=== PATIENT | female | born 1990 | race Caucasian/White ===

== ENCOUNTER 2018-05-30 03:04 | Inpatient (IN) | payer OTHER ==
[2018-05-30] MEDS: morphine 4 MG/ML VIAL IV (03:57)
[2018-05-30] MEDS: ONDANSETRON 4 MG INJ IV ×2 (03:57→13:29)
[2018-05-30] MEDS: SOD CHLORIDE 0.9% 500 ML IV (03:59)
[2018-05-30 04:07] LABS: ADD MAN DIFF? NO
[2018-05-30 04:09] LABS: BASOPHIL # 0.1 10^3/ul (0.0-0.1); BASOPHILS % 0.5 % (0.0-2.0); EOSINOPHILS # 0.1 10^3/ul (0.0-0.5); HEMATOCRIT 43.5 % (37.0-47.0); HEMOGLOBIN 14.8 g/dl (12.0-16.0); LYMPHOCYTES # 3.9 10^3/ul (0.8-2.9); LYMPHOCYTES % 29.9 % (15.0-51.0); MEAN CORPUSCULAR HEMOGLOBIN 28.2 pg (29.0-33.0); MEAN CORPUSCULAR VOLUME 82.9 fl (82.0-101.0); MEAN PLATELET VOLUME 10.5 fl (7.4-10.4); NEUTROPHIL # 7.8 10^3/ul (1.6-7.5); NEUTROPHILS % 60.2 % (39.0-77.0); PLATELET COUNT 367 10^3/UL (140-415); RED BLOOD COUNT 5.25 10^6/ul (4.20-5.40); RED CELL DISTRIBUTION WIDTH 12.6 % (11.5-14.5)
[2018-05-30 04:09] LABS: WHITE BLOOD COUNT 12.9 10^3/ul (4.8-10.8)
[2018-05-30] MEDS: LORAZEPAM 2 MG INJ IV (04:18)
[2018-05-30 04:21] LABS: ADD UMIC YES; UR ASCORBIC ACID NEGATIVE (NEGATIVE); UR BACTERIA FEW /HPF (NONE SEEN); UR BILIRUBIN (Dip) NEGATIVE (NEGATIVE); UR BLOOD (Dip) NEGATIVE (NEGATIVE); UR CLARITY SLIGHTLY CLOUDY (CLEAR); UR COLOR YELLOW (YELLOW); UR GLUCOSE (Dip) NEGATIVE (NEGATIVE); UR KETONES (Dip) NEGATIVE (NEGATIVE); UR LEUKOCYTE ESTERASE (Dip) 3+ Leu/ul (NEGATIVE); UR NITRITE (Dip) NEGATIVE (NEGATIVE); UR RBC 3 /HPF (0-5); UR SPECIFIC GRAVITY (Dip) 1.017 (1.003-1.030); UR SQUAMOUS EPITHELIAL CELL FEW /HPF (FEW); UR TOTAL PROTEIN (Dip) NEGATIVE (NEGATIVE); UR UROBILINOGEN (Dip) NEGATIVE (NEGATIVE); UR WBC 4 /HPF (0-5)
[2018-05-30 04:29] LABS: ALANINE AMINOTRANSFERASE 45 IU/L (13-69); ALBUMIN 4.8 g/dl (3.3-4.9); ALBUMIN/GLOBULIN RATIO 1.29; ALKALINE PHOSPHATASE 86 IU/L (42-121); ANION GAP 8 (5-13); ASPARTATE AMINO TRANSFERASE 38 IU/L (15-46); BILIRUBIN,INDIRECT 0.1 mg/dl (0-1.1); BILIRUBIN,TOTAL 0.1 mg/dl (0.2-1.3); BLOOD UREA NITROGEN 16 mg/dl (7-20); CALCIUM 10.1 mg/dl (8.4-10.2); CARBON DIOXIDE 25 mmol/L (21-31); CHLORIDE 104 mmol/L (97-110); CREATININE 0.89 mg/dl (0.44-1.00); Estimated GFR > 60 mL/min (>60); GLUCOSE 107 mg/dl (70-220); LIPASE 90 U/L (23-300); SODIUM 137 mmol/L (135-144); TOTAL PROTEIN 8.5 g/dl (6.1-8.1)
[2018-05-30] MEDS: IOHEXOL 300MG/ML 150 ML BTL (04:51)
[2018-05-30] MEDS: SOD CHLORIDE 0.9% 100 ML (04:51)
[2018-05-30] MEDS: KETOROLAC 30 MG INJ IV (05:18)
[2018-05-30] MEDS ORDERED: ACETAMINOPHEN 325 MG TAB PO (06:30)
[2018-05-30] MEDS ORDERED: ONDANSETRON 4 MG INJ IV ×3 (06:30→16:00)
[2018-05-30] MEDS: metroNIDAZOLE 500 MG/NS (PMX) 100 ML IVPB ×3 (06:37→23:13)
[2018-05-30] MEDS ORDERED: GLYCOPYRROLATE 0.4 MG INJ (07:00)
[2018-05-30] MEDS ORDERED: NEOSTIGMINE 3 MG/3 ML SYRINGE (07:00)
[2018-05-30] MEDS ORDERED: DEXAMETHASONE 4 MG/ML 1 ML INJ (07:00)
[2018-05-30] MEDS ORDERED: CLINDAMYCIN 900 MG/50 ML D5W IVPB IVPB (07:00)
[2018-05-30] MEDS: LEVOFLOXACIN 500MG/D5W (PMX) 100 ML IVPB ×2 (07:25→16:03)
[2018-05-30] MEDS ORDERED: PROPOFOL 40 ML (12:29)
[2018-05-30] MEDS ORDERED: FENTAnyl 50 MCG/ML VIAL ×2 (12:29→12:56)
[2018-05-30] MEDS ORDERED: LIDOCAINE 2% (SDV) 5 ML INJ (12:29)
[2018-05-30] MEDS ORDERED: MIDAZOLAM 1 MG/ML 2 ML INJ (12:29)
[2018-05-30] MEDS ORDERED: ONDANSETRON 4 MG INJ (12:29)
[2018-05-30] MEDS ORDERED: ROCURONIUM 50 MG INJ (12:29)
[2018-05-30] MEDS ORDERED: FAMOTIDINE 20 MG INJ (12:30)
[2018-05-30] MEDS: BUPIVACAINE 0.5%/EPI (SDV) 30 ML INJ (12:59)
[2018-05-30] MEDS ORDERED: OXYCODONE/ACETAMINOPHEN (5/325) TAB PO ×2 (13:00)
[2018-05-30] MEDS ORDERED: morphine (1 MG/ML) 10ML SYRINGE IV ×2 (13:00)
[2018-05-30] MEDS ORDERED: DIPHENHYDRAMINE 50 MG INJ IV (13:00)
[2018-05-30] MEDS ORDERED: LABETALOL HCL 20MG INJ IV (13:00)
[2018-05-30] MEDS ORDERED: HYDROmorphONE 1 MG/5 ML IV SYRINGE IV (13:00)
[2018-05-30] MEDS ORDERED: ALBUTEROL 0.083% (NEB) 2.5 MG/3 ML AMP HHN (13:00)
[2018-05-30] MEDS ORDERED: FENTAnyl 50 MCG/ML VIAL IV (13:00)
[2018-05-30] MEDS: FENTAnyl 50 MCG/ML VIAL IV ×2 (13:29→13:34)
[2018-05-30] MEDS: MEPERIDINE 25 MG INJ IV (13:29)
[2018-05-30] MEDS: HYDROmorphONE 1 MG/5 ML IV SYRINGE IV (13:54)
[2018-05-30] MEDS: SOD CHLORIDE 0.9% 1,000 ML IV (15:58)
[2018-05-30] MEDS: morphine SULFATE/PF (2 MG/2 ML) SYG IV ×2 (18:48→23:13)
[2018-05-30] MEDS: HYDROCODONE/APAP (5/325) TAB PO (21:46)
[2018-05-31] MEDS: metroNIDAZOLE 500 MG/NS (PMX) 100 ML IVPB ×3 (05:27→21:25)
[2018-05-31] MEDS: morphine SULFATE/PF (2 MG/2 ML) SYG IV ×4 (05:37→21:34)
[2018-05-31] MEDS: SOD CHLORIDE 0.9% 1,000 ML IV ×2 (05:45→12:55)
[2018-05-31 06:41] LABS: ADD MAN DIFF? NO
[2018-05-31 06:47] LABS: BASOPHILS % 0.1 % (0.0-2.0); HEMOGLOBIN 13.3 g/dl (12.0-16.0); LYMPHOCYTES # 1.4 10^3/ul (0.8-2.9); LYMPHOCYTES % 9.1 % (15.0-51.0); MEAN CORPUSCULAR HEMOGLOBIN 28.4 pg (29.0-33.0); MEAN CORPUSCULAR HGB CONC 34.1 g/dl (32.0-37.0); MEAN CORPUSCULAR VOLUME 83.2 fl (82.0-101.0); MEAN PLATELET VOLUME 10.9 fl (7.4-10.4); MONOCYTE # 0.7 10^3/ul (0.3-0.9); MONOCYTES % 4.6 % (0.0-11.0); NEUTROPHILS % 85.9 % (39.0-77.0); PLATELET COUNT 333 10^3/UL (140-415); RED BLOOD COUNT 4.69 10^6/ul (4.20-5.40); RED CELL DISTRIBUTION WIDTH 12.7 % (11.5-14.5)
[2018-05-31 06:47] LABS: WHITE BLOOD COUNT 15.1 10^3/ul (4.8-10.8)
[2018-05-31 07:10] LABS: ANION GAP 12 (5-13); BLOOD UREA NITROGEN 11 mg/dl (7-20); CALCIUM 9.2 mg/dl (8.4-10.2); CARBON DIOXIDE 27 mmol/L (21-31); CHLORIDE 102 mmol/L (97-110); CREATININE 0.68 mg/dl (0.44-1.00); Estimated GFR > 60 mL/min (>60); GLUCOSE 127 mg/dl (70-220); POTASSIUM 4.5 mmol/L (3.5-5.1); SODIUM 141 mmol/L (135-144)
[2018-05-31 07:17] LABS: PHOSPHORUS 4.4 mg/dl (2.5-4.9)
[2018-05-31 07:17] LABS: MAGNESIUM 1.9 mg/dl (1.7-2.5)
[2018-05-31] MEDS: LEVOFLOXACIN 500MG/D5W (PMX) 100 ML IVPB (15:57)
[2018-05-31] MEDS: HYDROCODONE/APAP (5/325) TAB PO (15:57)
[2018-06-01] MEDS: HYDROCODONE/APAP (5/325) TAB PO ×3 (00:14→23:27)
[2018-06-01] MEDS: morphine SULFATE/PF (2 MG/2 ML) SYG IV ×2 (04:59→17:44)
[2018-06-01] MEDS: metroNIDAZOLE 500 MG/NS (PMX) 100 ML IVPB ×3 (05:03→23:23)
[2018-06-01 07:40] LABS: ADD MAN DIFF? NO
[2018-06-01 07:43] LABS: BASOPHILS % 0.3 % (0.0-2.0); EOSINOPHILS % 0.3 % (0.0-7.0); HEMATOCRIT 35.6 % (37.0-47.0); LYMPHOCYTES # 3.1 10^3/ul (0.8-2.9); LYMPHOCYTES % 26.5 % (15.0-51.0); MEAN CORPUSCULAR HEMOGLOBIN 28.2 pg (29.0-33.0); MEAN CORPUSCULAR HGB CONC 33.7 g/dl (32.0-37.0); MEAN CORPUSCULAR VOLUME 83.8 fl (82.0-101.0); MEAN PLATELET VOLUME 10.7 fl (7.4-10.4); MONOCYTE # 1.1 10^3/ul (0.3-0.9); NEUTROPHIL # 7.5 10^3/ul (1.6-7.5); NEUTROPHILS % 63.5 % (39.0-77.0); PLATELET COUNT 303 10^3/UL (140-415); RED BLOOD COUNT 4.25 10^6/ul (4.20-5.40); RED CELL DISTRIBUTION WIDTH 13.3 % (11.5-14.5)
[2018-06-01 07:43] LABS: WHITE BLOOD COUNT 11.8 10^3/ul (4.8-10.8)
[2018-06-01 08:16] LABS: ALANINE AMINOTRANSFERASE 29 IU/L (13-69); ALBUMIN 3.6 g/dl (3.3-4.9); ALBUMIN/GLOBULIN RATIO 1.05; ALKALINE PHOSPHATASE 53 IU/L (42-121); ANION GAP 10 (5-13); ASPARTATE AMINO TRANSFERASE 21 IU/L (15-46); BILIRUBIN,INDIRECT 0.2 mg/dl (0-1.1); BILIRUBIN,TOTAL 0.2 mg/dl (0.2-1.3); BLOOD UREA NITROGEN 10 mg/dl (7-20); CALCIUM 8.5 mg/dl (8.4-10.2); CARBON DIOXIDE 26 mmol/L (21-31); CHLORIDE 106 mmol/L (97-110); CREATININE 0.76 mg/dl (0.44-1.00); Estimated GFR > 60 mL/min (>60); GLUCOSE 93 mg/dl (70-220); POTASSIUM 3.9 mmol/L (3.5-5.1); SODIUM 142 mmol/L (135-144)
[2018-06-01] MEDS ORDERED: LACTULOSE 30ML CUP PO (11:30)
[2018-06-01] MEDS: SOD CHLORIDE 0.9% 1,000 ML IV (11:32)
[2018-06-01] MEDS: LEVOFLOXACIN 500MG/D5W (PMX) 100 ML IVPB (17:42)
[2018-06-02] MEDS: SOD CHLORIDE 0.9% 1,000 ML IV (04:55)
[2018-06-02] MEDS: metroNIDAZOLE 500 MG/NS (PMX) 100 ML IVPB (06:23)
[2018-06-02] MEDS: HYDROCODONE/APAP (5/325) TAB PO (06:24)
[2018-06-02 06:34] LABS: ADD MAN DIFF? NO
[2018-06-02 06:35] LABS: BASOPHILS % 0.4 % (0.0-2.0); EOSINOPHILS % 0.4 % (0.0-7.0); HEMATOCRIT 37.6 % (37.0-47.0); HEMOGLOBIN 12.7 g/dl (12.0-16.0); LYMPHOCYTES # 2.5 10^3/ul (0.8-2.9); MEAN CORPUSCULAR HEMOGLOBIN 28.5 pg (29.0-33.0); MEAN CORPUSCULAR HGB CONC 33.8 g/dl (32.0-37.0); MEAN CORPUSCULAR VOLUME 84.3 fl (82.0-101.0); MEAN PLATELET VOLUME 10.3 fl (7.4-10.4); MONOCYTE # 0.9 10^3/ul (0.3-0.9); MONOCYTES % 7.9 % (0.0-11.0); NEUTROPHIL # 7.5 10^3/ul (1.6-7.5); NEUTROPHILS % 68.1 % (39.0-77.0); PLATELET COUNT 336 10^3/UL (140-415); RED BLOOD COUNT 4.46 10^6/ul (4.20-5.40)
[2018-06-02 06:35] LABS: WHITE BLOOD COUNT 10.9 10^3/ul (4.8-10.8)
[2018-06-02 07:01] LABS: ANION GAP 11 (5-13); BLOOD UREA NITROGEN 9 mg/dl (7-20); CALCIUM 8.8 mg/dl (8.4-10.2); CARBON DIOXIDE 26 mmol/L (21-31); CHLORIDE 104 mmol/L (97-110); Estimated GFR > 60 mL/min (>60); GLUCOSE 95 mg/dl (70-220); POTASSIUM 3.7 mmol/L (3.5-5.1); SODIUM 141 mmol/L (135-144)
[2018-06-02] MEDS: BISACODYL 10 MG SUPP PR (11:10)
== END 2018-06-02 14:20 | disposition home or self-care (01) | DRG 421 ==
LOC: FTE 03:04 → 2NE 06:31
PROC: 0WJG4ZZ Inspection of Peritoneal Cavity, Percutaneous Endoscopic Approach (ICD-10-PCS; principal; 2018-05-30 12:30)
DX: K80.20 Calculus of gallbladder without cholecystitis without obstruction (principal); K56.7 Ileus, unspecified; K66.0 Peritoneal adhesions (postprocedural) (postinfection); N32.89 Other specified disorders of bladder; E66.9 Obesity, unspecified; K59.00 Constipation, unspecified; Z68.36 Body mass index [BMI] 36.0-36.9, adult; Z98.2 Presence of cerebrospinal fluid drainage device; Z88.0 Allergy status to penicillin
CPT/HCPCS: 36415; 74177; 76705; 78226; 80048; 80053; 81001; 81025; 83690; 83735; 84100; 84703; 85025; 96361; 96374; 96375; 99285-25

== ENCOUNTER 2018-10-01 23:33 | Inpatient (IN) | payer OTHER ==
[2018-10-02] MEDS: morphine 4 MG/ML VIAL IV ×2 (01:15→16:42)
[2018-10-02] MEDS: ONDANSETRON 4 MG INJ IV ×2 (01:15→08:10)
[2018-10-02] MEDS: SOD CHLORIDE 0.9% 1,000 ML IV ×3 (01:18→13:17)
[2018-10-02 01:23] LABS: ADD MAN DIFF? NO
[2018-10-02 01:24] LABS: WHITE BLOOD COUNT 13.5 10^3/ul (4.8-10.8)
[2018-10-02 01:24] LABS: BASOPHIL # 0.1 10^3/ul (0.0-0.1); BASOPHILS % 0.7 % (0.0-2.0); EOSINOPHILS # 0.1 10^3/ul (0.0-0.5); EOSINOPHILS % 0.5 % (0.0-7.0); HEMATOCRIT 43.5 % (37.0-47.0); HEMOGLOBIN 14.7 g/dl (12.0-16.0); LYMPHOCYTES # 3.5 10^3/ul (0.8-2.9); LYMPHOCYTES % 25.7 % (15.0-51.0); MEAN CORPUSCULAR HEMOGLOBIN 28.2 pg (29.0-33.0); MEAN CORPUSCULAR HGB CONC 33.8 g/dl (32.0-37.0); MEAN CORPUSCULAR VOLUME 83.3 fl (82.0-101.0); MEAN PLATELET VOLUME 11.1 fl (7.4-10.4); MONOCYTE # 0.9 10^3/ul (0.3-0.9); MONOCYTES % 6.9 % (0.0-11.0); NEUTROPHIL # 8.9 10^3/ul (1.6-7.5); NEUTROPHILS % 66.1 % (39.0-77.0); PLATELET COUNT 324 10^3/UL (140-415); RED BLOOD COUNT 5.22 10^6/ul (4.20-5.40); RED CELL DISTRIBUTION WIDTH 13.2 % (11.5-14.5)
[2018-10-02] MEDS: HYDROmorphONE 0.5 MG/0.5 ML SYG IV ×3 (01:42→05:52)
[2018-10-02 01:51] LABS: ALANINE AMINOTRANSFERASE 22 IU/L (13-69); ALBUMIN/GLOBULIN RATIO 1.35; ALKALINE PHOSPHATASE 90 IU/L (42-121); ANION GAP 16 (5-13); ASPARTATE AMINO TRANSFERASE 25 IU/L (15-46); BILIRUBIN,INDIRECT 0.3 mg/dl (0-1.1); BILIRUBIN,TOTAL 0.3 mg/dl (0.2-1.3); BLOOD UREA NITROGEN 9 mg/dl (7-20); CALCIUM 10.3 mg/dl (8.4-10.2); CARBON DIOXIDE 22 mmol/L (21-31); CHLORIDE 105 mmol/L (97-110); CREATININE 0.84 mg/dl (0.44-1.00); Estimated GFR > 60 mL/min (>60); GLUCOSE 126 mg/dl (70-220); LIPASE 103 U/L (23-300); POTASSIUM 3.2 mmol/L (3.5-5.1); SODIUM 143 mmol/L (135-144); TOTAL PROTEIN 8.7 g/dl (6.1-8.1)
[2018-10-02] MEDS: metroNIDAZOLE 500 MG/NS (PMX) 100 ML IVPB ×3 (03:09→23:50)
[2018-10-02] MEDS: LEVOFLOXACIN 500MG/D5W (PMX) 100 ML IVPB (04:02)
[2018-10-02] MEDS: IOHEXOL 300MG/ML 150 ML BTL (04:27)
[2018-10-02] MEDS: SOD CHLORIDE 0.9% 100 ML (04:28)
[2018-10-02 04:50] LABS: ADD UMIC YES; UR ASCORBIC ACID NEGATIVE (NEGATIVE); UR BILIRUBIN (Dip) NEGATIVE (NEGATIVE); UR BLOOD (Dip) 1+ mg/dL (NEGATIVE); UR CLARITY SLIGHTLY CLOUDY (CLEAR); UR COLOR YELLOW (YELLOW); UR GLUCOSE (Dip) NEGATIVE (NEGATIVE); UR KETONES (Dip) 1+ mg/dL (NEGATIVE); UR LEUKOCYTE ESTERASE (Dip) 1+ Leu/ul (NEGATIVE); UR MUCUS FEW /HPF (NONE SEEN); UR NITRITE (Dip) NEGATIVE (NEGATIVE); UR RBC 3 /HPF (0-5); UR SPECIFIC GRAVITY (Dip) 1.017 (1.003-1.030); UR SQUAMOUS EPITHELIAL CELL MODERATE /HPF (FEW); UR TOTAL PROTEIN (Dip) NEGATIVE (NEGATIVE); UR UROBILINOGEN (Dip) NEGATIVE (NEGATIVE); UR WBC 3 /HPF (0-5)
[2018-10-02] MEDS ORDERED: ONDANSETRON 4 MG INJ IV ×3 (07:30→22:00)
[2018-10-02] MEDS: HYDROmorphONE 1 MG/ML SYG IV (08:10)
[2018-10-02] MEDS: morphine 2 MG INJ IV (12:18)
[2018-10-02] MEDS ORDERED: METOCLOPRAMIDE 10 MG INJ IV ×2 (13:30→22:00)
[2018-10-02] MEDS: CIPROFLOXACIN 400MG/D5W 200 ML IVPB (19:51)
[2018-10-02] MEDS ORDERED: SEVOFLURANE 15 MIN (20:00)
[2018-10-02] MEDS ORDERED: MIDAZOLAM 1 MG/ML 2 ML INJ (20:01)
[2018-10-02] MEDS ORDERED: ROPIVACAINE 0.5 % 30 ML VIAL (21:27)
[2018-10-02] MEDS ORDERED: DIPHENHYDRAMINE 50 MG INJ IV ×2 (21:30→22:00)
[2018-10-02] MEDS ORDERED: HYDROCODONE/APAP (5/325) TAB PO (21:30)
[2018-10-02] MEDS ORDERED: DIPHENHYDRAMINE 25 MG CAP PO (21:30)
[2018-10-02] MEDS ORDERED: LIDOCAINE 2% (SDV) 5 ML INJ (21:41)
[2018-10-02] MEDS ORDERED: PROPOFOL 20 ML (21:41)
[2018-10-02] MEDS ORDERED: GLYCOPYRROLATE 0.4 MG INJ (21:41)
[2018-10-02] MEDS ORDERED: METOCLOPRAMIDE 10 MG INJ (21:41)
[2018-10-02] MEDS ORDERED: ONDANSETRON 4 MG INJ (21:41)
[2018-10-02] MEDS ORDERED: NEOSTIGMINE 3 MG/3 ML SYRINGE (21:41)
[2018-10-02] MEDS: BUPIVACAINE 0.5%/EPI (SDV) 30 ML INJ (21:55)
[2018-10-02] MEDS: LIDOCAINE 1% (MPF) 30 ML INJ (21:55)
[2018-10-02] MEDS ORDERED: MEPERIDINE 25 MG INJ IV (22:00)
[2018-10-02] MEDS ORDERED: FENTAnyl 50 MCG/ML VIAL IV (22:00)
[2018-10-02] MEDS ORDERED: HYDROmorphONE 1 MG/5 ML IV SYRINGE IV ×2 (22:00)
[2018-10-02] MEDS: D5W-0.45 NACL + KCL 20 MEQ 1,000 ML IV (23:50)
[2018-10-03] MEDS: morphine 2 MG INJ IV ×8 (00:02→23:03)
[2018-10-03] MEDS: KETOROLAC 30 MG INJ IV ×2 (01:41→09:31)
[2018-10-03] MEDS: CIPROFLOXACIN 400MG/D5W 200 ML IVPB ×3 (02:19→21:01)
[2018-10-03] MEDS: metroNIDAZOLE 500 MG/NS (PMX) 100 ML IVPB ×3 (05:56→23:01)
[2018-10-03] MEDS: PANTOPRAZOLE 40 MG INJ IV (05:56)
[2018-10-03] MEDS: D5W-0.45 NACL + KCL 20 MEQ 1,000 ML IV ×2 (07:30→16:37)
[2018-10-03] MEDS: ONDANSETRON 4 MG INJ IV (09:39)
[2018-10-03 15:58] LABS: ADD MAN DIFF? NO
[2018-10-03 16:01] LABS: BASOPHILS % 0.3 % (0.0-2.0); EOSINOPHILS # 0.2 10^3/ul (0.0-0.5); EOSINOPHILS % 1.6 % (0.0-7.0); HEMATOCRIT 36.6 % (37.0-47.0); LYMPHOCYTES # 2.1 10^3/ul (0.8-2.9); LYMPHOCYTES % 20.8 % (15.0-51.0); MEAN CORPUSCULAR HEMOGLOBIN 27.8 pg (29.0-33.0); MEAN CORPUSCULAR HGB CONC 32.8 g/dl (32.0-37.0); MEAN CORPUSCULAR VOLUME 84.7 fl (82.0-101.0); MEAN PLATELET VOLUME 11.1 fl (7.4-10.4); MONOCYTE # 0.9 10^3/ul (0.3-0.9); MONOCYTES % 8.9 % (0.0-11.0); NEUTROPHIL # 6.8 10^3/ul (1.6-7.5); NEUTROPHILS % 68.1 % (39.0-77.0); PLATELET COUNT 268 10^3/UL (140-415); RED BLOOD COUNT 4.32 10^6/ul (4.20-5.40); RED CELL DISTRIBUTION WIDTH 13.4 % (11.5-14.5)
[2018-10-03 16:24] LABS: ALANINE AMINOTRANSFERASE 86 IU/L (13-69); ALBUMIN 3.4 g/dl (3.3-4.9); ALBUMIN/GLOBULIN RATIO 1.13; ALKALINE PHOSPHATASE 56 IU/L (42-121); ANION GAP 7 (5-13); ASPARTATE AMINO TRANSFERASE 81 IU/L (15-46); BILIRUBIN,INDIRECT 0.4 mg/dl (0-1.1); BILIRUBIN,TOTAL 0.4 mg/dl (0.2-1.3); BLOOD UREA NITROGEN 7 mg/dl (7-20); CALCIUM 7.8 mg/dl (8.4-10.2); CARBON DIOXIDE 21 mmol/L (21-31); CHLORIDE 109 mmol/L (97-110); CREATININE 0.81 mg/dl (0.44-1.00); Estimated GFR > 60 mL/min (>60); GLUCOSE 101 mg/dl (70-220); PHOSPHORUS 2.9 mg/dl (2.5-4.9); POTASSIUM 3.9 mmol/L (3.5-5.1); SODIUM 137 mmol/L (135-144); TOTAL PROTEIN 6.4 g/dl (6.1-8.1)
[2018-10-03] MEDS: HYDROCODONE/APAP (5/325) TAB PO (17:41)
[2018-10-04] MEDS: ACETAMINOPHEN 325 MG TAB PO (02:06)
[2018-10-04] MEDS: morphine 2 MG INJ IV ×5 (02:31→13:32)
[2018-10-04] MEDS: DOCUSATE SODIUM 100 MG CAP PO (02:35)
[2018-10-04] MEDS: PANTOPRAZOLE 40 MG INJ IV (05:00)
[2018-10-04] MEDS: metroNIDAZOLE 500 MG/NS (PMX) 100 ML IVPB ×2 (05:21→13:30)
[2018-10-04] MEDS: CIPROFLOXACIN 400MG/D5W 200 ML IVPB (08:30)
[2018-10-04] MEDS: HYDROCODONE/APAP (5/325) TAB PO (16:15)
== END 2018-10-04 17:54 | disposition home or self-care (01) | DRG 419 ==
LOC: FTE 23:33 → MS3 10-02 06:29 → PP2 10-02 22:48
PROC: 0FT44ZZ Resection of Gallbladder, Percutaneous Endoscopic Approach (ICD-10-PCS; principal; 2018-10-02 19:30)
DX: K80.00 Calculus of gallbladder with acute cholecystitis without obstruction (principal); K82.A1 Gangrene of gallbladder in cholecystitis; Z98.2 Presence of cerebrospinal fluid drainage device
CPT/HCPCS: 36415; 74177; 76705; 78226; 80053; 81001; 81025; 83690; 83735; 84100; 85025; 87040-91; 88304; 93005; 96361; 96374; 96375; 96376; 99285-25; G0378